=== PATIENT | female | born 1940 | race Caucasian/White ===

== ENCOUNTER → 2016-11-15 | Outpatient (CLI) | payer MEDICARE, BC ==
[2016-11-19 12:48] LABS: LYME IgG WESTERN BLOT Negative (Negative)
== END ==
LOC: COL.LAB 15:50
PROVIDERS: Internal Medicine Infectious Disease
DX: A69.20 Lyme disease, unspecified (principal)

== ENCOUNTER → 2017-07-24 | Outpatient (CLI) | payer MEDICARE, BC | LOC: COL.LAB 10:15 | DX: G60.0 Hereditary motor and sensory neuropathy (principal) ==